=== PATIENT | female | born 1990 | race Caucasian/White ===

== ENCOUNTER 2018-08-14 22:50 | Emergency (ER) | payer BC ==
[~2018-08-14] VITALS: Ht 165.1 cm; Wt 52.2 kg
[2018-08-14 23:39] VITALS: BP 99/61
[2018-08-14 23:48] LABS: APPEARANCE,URINE Cloudy (CLEAR); BILIRUBIN,URINE Negative (NEGATIVE); BLOOD, URINE Moderate Ery/uL (NEGATIVE); COLOR,URINE Light yellow (YELLOW); KETONES,URINE Negative (NEGATIVE); LEUKOCYTE ESTERASE ,URINE Moderate (NEGATIVE); NITRITE, URINE Negative (NEGATIVE); PROTEIN,URINE Negative (NEGATIVE); UGLUCOSE Negative (NEGATIVE); UROBILINOGEN,URINE 0.2 EU/dL (0.2)
[2018-08-15 01:10] LABS: BACTERIA,URINE Few /HPF (None Seen); SQUAMOUS EPITHELIAL CELL,UR Few /HPF (None Seen); WBC,URINE TOO NUMEROUS TO COUN /HPF (0-3)
== END 2018-08-14 23:40 | disposition home or self-care (01) ==
LOC: ER 22:54
DX: N39.0 Urinary tract infection, site not specified (principal)
CPT/HCPCS: 81000-TC; 84703-TC; 87086-TC